=== PATIENT | male | born 1950 | race Caucasian/White ===

== ENCOUNTER 2023-05-10 14:33 | Outpatient (AMB) | payer OTHER, SELFPAY ==
--- NOTE | 2023-05-10 14:51 | MHC.OFFVIS ---
Intake Vital Signs 05/10/23 15:07 Height 5 ft 6 in Weight 268 lb 8 oz BMI 43.3 BP 134/72 Blood Pressure Location Lt brachial Position Sitting Respiration 16 Pulse 86 Pulse Source Pulse Oximeter Pulse Oximetry (%) 92 Oxygen Delivery Method Room Air Intake Visit Reasons: ENP: TREMOR OF HAND Intake Note: Pt presents to the office for new pt evaluation for tremors of the hand. Hopper Filler Required: No Allergies finasteride Allergy (Intermediate, Verified 05/10/23 15:07) Anaphylaxis Medication List - Last Reconciled 05/10/23 by Aye Falk MD acetaminophen 500 mg PO Q6H PRN carboxymethylcellulose sodium 1% (Artificial Tears (carboxymethylcellulose)) 1 drp ophthalmic (eye) BID cholecalciferol (vitamin D3) 25 mcg PO DAILY codeine-guaifenesin 10-100 mg/5 mL 5 mL PO Q6H PRN diclofenac sodium 3% 1 appl topical BID esomeprazole magnesium (Nexium) 20 mg PO DAILY finasteride 5 mg PO DAILY fluticasone propionate 50 mcg/actuation 1 inh inhalation BID furosemide 20 mg PO DAILY ketoconazole 2% 1 appl topical 2XW lidocaine 4% (AsperFlex (lidocaine)) 1 patch topical DAILY PRN loratadine 10 mg PO DAILY meclizine 25 mg PO BID PRN terazosin 2 mg PO BEDTIME trazodone 25 mg PO DAILY triamcinolone acetonide 0.1% 1 appl topical DAILY HPI HPI Comments History of Present Illness Details 73y/o [place]ian speaking male comes for evaluation of tremors in his hands .He says he has robert hand tremors which is intermittent and usually related to anxiety.His PCps note mentions left hand tremors but he says he has intermittent tremors for past 5 years.( his PCP notes mention that he had for 20 years and now started to affect his activities ) But he denies any difficulty due to tremors. Now he complains of pain in his left hand - in the palmar surface for past 2 months. 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 No shooting pain from the neck. He also reports on and off numbness and tingling in both his hands. [facility] Medical History (Updated 05/10/23 @ 15:53 by Aye Falk MD) Occasional tremors Insomnia Renal cell carcinoma Pulmonary granuloma BPH (benign prostatic hyperplasia) CTS (carpal tunnel syndrome) CKD (chronic kidney disease) MCI (mild cognitive impairment) Prediabetes IBS (irritable bowel syndrome) Lumbago GERD (gastroesophageal reflux disease) Obesity Osteoarthritis Plantar fasciitis Hyperparathyroidism Hemorrhoids HTN (hypertension) Cholecystitis Cataract Surgical History (Updated 05/10/23 @ 15:18 by Rafaela Gotti CMA) History of appendectomy S/P hip replacement Hx of cholecystectomy History of nephrectomy Family History Father No problems noted. Mother No problems noted. Social History Household Members: Spouse Housing: House Alcohol intake: former Patient Tobacco Use Status: Never used Tobacco Physical Exam Vital Signs: Last Vital Signs Pulse 86 05/10/23 15:07 Resp 16 05/10/23 15:07 BP 134/72 05/10/23 15:07 Pulse Ox 92 05/10/23 15:07 Oxygen Delivery Method Room Air 05/10/23 15:07 BMI result Body Mass Index 43.3 Const General: cooperative, healthy appearing, comfortable and no acute distress Nutritional Appearance: obese Orientation/consciousness: patient oriented x3 Neuro Other: rare mild intermittent tremors - postural and rest No cog wheel rigidity FFM - mildly decreased robert General: patient oriented x3, tone normal, moves all extremities and no focal motor deficits Cranial nerves: Yes Bilaterally intact EOM present, Yes Nystagmus not present, Yes Normal facial strength present and Yes Midline tongue present Cognition (Neuro): normal cognition Gait exam (Neuro): Antalgic gait present Motor exam (neuro): 5/5 motor strength present throughout and Normal motor muscle tone present throughout Deep tendon reflexes (DTR's): Right triceps reflex intensity grade: 1+, Left triceps reflex intensity grade: 1+, Rt Biceps (C5, C6): 1+, Left biceps reflex intensity grade: 1+, Right brachioradialis reflex intensity grade: 1+, Left brachioradialis reflex intensity grade: 1+, Right patellar reflex intensity grade: 1+ and Left patellar reflex intensity grade: 1+ Coordination: [id number] test normal Assessment & Plan Assessment & Plan (1) Occasional tremors: Comment: franc exaggerated physiological tremors. No evidence of parkinsons Code(s): R25.1 - Tremor, unspecified (2) CTS (carpal tunnel syndrome): Code(s): G56.00 - Carpal tunnel syndrome, unspecified upper limb Plan No evidence of parkinsons He reports pain in multiple joints- suggested to discuss with his PCP Wrist splints for carpal tunnel syndrome . Medications: New [WRSIT SPLINTS] As directed 1 ea 0RF G56.00 - Carpal tunnel syndrome, unspecified upper limb Coding Level of Care Code New Pt Level 4 (03139) Diagnoses Occasional tremors R25.1 CTS (carpal tunnel syndrome) G56.00
[2023-05-10 15:07] VITALS: BP 134/72; PULSE 86; RESP 16; O2SAT 92; BMI 43.3
== END 2023-05-10 15:53 | disposition home or self-care (01) ==
PROVIDERS: Visit Provider Psychiatry & Neurology Neurology
DX: R25.1 Tremor, unspecified (principal); G56.00 Carpal tunnel syndrome, unspecified upper limb
CPT/HCPCS: 99204

== ENCOUNTER → 2023-05-10 14:33 | Outpatient (BNVA) | payer OTHER, SELFPAY | PROVIDERS: Visit Provider Psychiatry & Neurology Neurology ==